=== PATIENT | male | born 1995 | race Caucasian/White ===

== ENCOUNTER 2020-02-01 01:34 | Emergency (ER) | payer BC ==
[2020-02-01 01:58] VITALS: BP 108/65; PULSE 70; TEMP 98.3; BMI 25.0
--- NOTE | 2020-02-01 01:58 | PDOC ---
History of Present Illness - General Chief Complaint: Back Pain Stated Complaint: BACK PAIN Time Seen by Provider: 02/01/20 01:54 Discharge - Discharge Information Problems reviewed: Yes Clinical Impression/Diagnosis: Back pain Qualifiers: Back pain location: back pain in unspecified location Chronicity: unspecified Back pain laterality: unspecified Qualified Code(s): M54.9 - Dorsalgia, unspecified Condition: Unchanged/Unknown Disposition: LEFT BEFORE JOSE CAN - Follow up/Referral - Patient Discharge Instructions - Post Discharge Activity
== END 2020-02-01 02:01 | disposition left against medical advice (07) ==
LOC: JER 01:34
DX: M54.9 Dorsalgia, unspecified (principal)
CPT/HCPCS: 99281-25

== ENCOUNTER 2021-12-02 18:19 | Emergency (ER) | payer OTHER ==
[2021-12-02 18:39] VITALS: BP 123/62; PULSE 76; TEMP 98.2; BMI 26.2
[2021-12-02] MEDS ORDERED: IBUPROFEN 600 MG TABLET (FP) PO ONE (18:45)
[2021-12-02] MEDS ORDERED: ACETAMINOPHEN 325 MG TABLET (FP) PO ONE (18:51)
[2021-12-02] MEDS ORDERED: ACETAMINOPHEN 325 MG TABLET (FP) ONE (18:58)
== END 2021-12-02 19:06 | disposition home or self-care (01) ==
LOC: FER 18:19
DX: L55.9 Sunburn, unspecified (principal)
CPT/HCPCS: 99283-25